=== PATIENT | female | born 1980 | race Caucasian/White ===

== ENCOUNTER 2020-12-19 20:47 | Emergency (ER) | payer SELFPAY ==
[2020-12-19 22:37] LABS: HEMOGLOBIN 13.7 gm/dl (12.3-15.3); RED BLOOD COUNT 4.67 M/UL (4.00-5.10); WHITE BLOOD COUNT 4.5 K/UL (4.5-11.0)
[2020-12-19 22:57] LABS: BUN/CREATININE RATIO 11 (0-10)
[2020-12-20] MEDS ORDERED: DECADRON6 MG PO (00:57)
[2020-12-20] MEDS ORDERED: ASPIRIN CHEWABL81 MG PO (00:57)
== END 2020-12-20 01:05 | disposition home or self-care (01) ==
LOC: ER1 20:47
PROVIDERS: Family Medicine
DX: Z23 Encounter for immunization (principal); U07.1 COVID-19
CPT/HCPCS: 71045; 80053; 83615; 85025; 86140; 99283; M0243